=== PATIENT | male | born 1985 | race Caucasian/White ===

== ENCOUNTER 2024-07-15 20:32 | Emergency (ER) | payer OTHER ==
[~2024-07-15] VITALS: Ht 167.6 cm; Wt 71.3 kg
[2024-07-15 20:37] VITALS: O2SAT 99
[2024-07-15 20:43] VITALS: BP 148/95; PULSE 99; RESP 18; TEMP 98; O2SAT 97
[2024-07-15] MEDS ORDERED: AMOX1TAB16 MT (22:14)
[2024-07-15] MEDS: LIDOCAINE HCL/PF 1% 10 MG/ML 5ML VIAL INFIL ONE (22:24)
[2024-07-15] MEDS: BACITRACIN ZINC OINT UDPKT TOP ONE (22:24)
[2024-07-15] MEDS: TETANUS, DIPHTHERIA, PERTUSSIS VAC/PF 0.5ML (>10YR OLD) IM ONE (22:48)
== END 2024-07-15 22:49 | disposition home or self-care (01) ==
LOC: ER 20:32
DX: S02.2XXA Fracture of nasal bones, initial encounter for closed fracture (principal); S01.21XA Laceration without foreign body of nose, initial encounter; R51.9 Headache, unspecified; W18.39XA Other fall on same level, initial encounter; Y93.89 Activity, other specified; Y92.89 Other specified places as the place of occurrence of the external cause; Y99.8 Other external cause status
CPT/HCPCS: 70450; 70486; 90715; 12013; 90471; 99285; J3490; Z7610 ×2